=== PATIENT | female | born 2000 | race Caucasian/White ===

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

== ENCOUNTER 2021-01-09 16:15 | Emergency (ER) | payer MEDICAID ==
[2021-01-09] MEDS ORDERED: TETRACAINE 0.5% STERI-UNIT SOL OP ONE (16:54)
[2021-01-09] MEDS ORDERED: Eye-Stream Solution ONE (16:54)
[2021-01-09] MEDS ORDERED: Fluor-I-Strip/Ful-Flo OP ONE (16:55)
[2021-01-09] MEDS ORDERED: Erythromycin 3.5 GM OPHTH. OP ONE ×2 (17:55→18:14)
[2021-01-09] MEDS ORDERED: Erythromycin 1 GM ONE (17:57)
--- NOTE | 2021-01-09 18:06 | ERPHSYRPT ---
- History of Present Illness Time Seen by Provider: 01/09/21 16:30 Source: patient Exam Limitations: no limitations Patient Subjective Stated Complaint: L eye irritation Triage Nursing Assessment: pt to ED c/o L eye irritation and swelling after ru bbing eye approx 30 min ago. states blurred vision in L eye and does not wear corrective lenses. pt states she believes she may have had tanning lotion still on her hand from this am and it has irritated eye while rubbing it. L eye is reddened and eyelids are swollen. denies pain now. some tears noted in L eye as well. Physician History: Patient is a 20-year-old female presents to our ED with complaints of eye irritation to her left eye. Symptoms started this morning after she accidentally had tanning lotion on her hand and rubbed her left eye. She said thereafter the eye became "itchy". Patient has been rubbing her eye all morning. Patient states now she feels a foreign body sensation in her eye. Slight blurred vision. No headache. No trauma. No flashing lights. No curtainlike shadow on patient's eyes. Symptoms are mild to moderate in intensity. No specific worsening or improving factors. Patient voices no other complaints or concerns at this time. Patient does not wear contacts or corrective eyeglasses. Timing/Duration: today Location: left eye Severity: mild Apparent Injury: no Associated Symptoms: itching Visual Assistive Devices: None Chemical Exposure: Yes Allergies/Adverse Reactions: No Known Drug Allergies Allergy (Verified 01/09/21 16:35) Hx Tetanus, Diphtheria Vaccination/Date Given: Yes Hx Influenza Vaccination/Date Given: Yes Hx Pneumococcal Vaccination/Date Given: No Immunizations Up to Date: Yes Travel Risk - International Travel Have you traveled outside of the country in past 3 weeks: No - Coronavirus Screening Are you exhibiting any of the following symptoms?: No Close contact with a COVID-19 positive Pt in past 14-21 Days: No - Past Medical History Pertinent Past Medical History: Yes Neurological History: No Pertinent History ENT History: No Pertinent History Cardiac History: No Pertinent History Respiratory History: Pneumonia Endocrine Medical History: No Pertinent History Musculoskeletal History: No Pertinent History GI Medical History: No Pertinent History History: No Pertinent History Psycho-Social History: No Pertinent History Female Reproductive Disorders: No Pertinent History - Past Surgical History Past Surgical History: Yes Neuro Surgical History: No Pertinent History Cardiac: No Pertinent History Respiratory: No Pertinent History Gastrointestinal: No Pertinent History Genitourinary: No Pertinent History Musculoskeletal: No Pertinent History Female Surgical History: No Pertinent History Other Surgical History: finger surgery as a child - Social History Smoking Status: Never smoker Exposure to second hand smoke: Yes Drug Use: none Patient Lives Alone: No - Female History Hx Last Menstrual Period: 12/17/20 Hx Now: No - Nursing Vital Signs Nursing Vital Signs: Initial Vital Signs Temperature 98.3 F 01/09/21 16:22 Pulse Rate 111 H 01/09/21 16:22 Respiratory Rate 20 01/09/21 16:22 Blood Pressure 141/88 01/09/21 16:22 O2 Sat by Pulse Oximetry 98 01/09/21 16:22 Pain Scale Pain Intensity 0 - Physical Exam Vision Acuity Degree Evaluation Phase: Uncorrected Vision Acuity Right Eye: 20/20 Vision Acuity Left Eye: 20/50 Intraocular Pressure (Tonopen): left Eye Exam: right eye: normal inspection, PERRL, EOMI, left eye: eyelid inflammation, vision changes (Visual acuity in the left was 20/50 originally however repeat was 20/30.), other (Negative Celeste sign. No obvious corneal abrasions. No obvious foreign bodies. Slight swelling of her left upper eyelid, likely due from rubbing her left thigh excessively.) Ears, Nose, Throat Exam: normal ENT inspection, TMs normal, pharynx normal, moist mucous membranes Neck Exam: normal inspection, non-tender, supple, full range of motion Respiratory Exam: normal breath sounds, lungs clear, airway intact Cardiovascular Exam: regular rate/rhythm (Heart rate at bedside was 88.), normal heart sounds, normal peripheral pulses Gastrointestinal Exam: soft Extremity Exam: normal inspection, normal range of motion, pelvis stable Neurologic: alert, oriented x 3, cooperative, manager ship II-XII nml as tested, normal mood/affect Skin Exam: normal color, warm, dry SpO2 Interpretation: normal SpO2: 98 O2 Delivery: Room Air - Course Nursing assessment & vital signs reviewed: Yes Ordered Tests: Medication Summary Discontinued Medications Generic Name Dose Route Start Last Admin Trade Name Freq PRN Reason Stop Dose Admin Erythromycin 3.5 gm 01/09/21 17:55 01/09/21 17:58 Erythromycin 3.5 Gm Ophth. OP 01/09/21 17:56 3.5 gm STAT ONE Administration Erythromycin Confirm 01/09/21 17:57 Erythromycin 1 Gm Administered 01/09/21 17:58 Dose 1 gm .ROUTE .STK-MED ONE Eye Irrigation Solution Confirm 01/09/21 16:54 Eye-Stream Solution Administered 01/09/21 16:55 Dose 30 ml .ROUTE .STK-MED ONE Fluorescein Sodium Confirm 01/09/21 16:55 Aedou-C-Sbtsz/Ful-Johnie Administered 01/09/21 16:56 Dose 1 mg OP .STK-MED ONE Tetracaine HCl Confirm 01/09/21 16:54 Tetracaine 0.5% Steri-Unit Kellie Administered 01/09/21 16:55 Dose 4 ml OP .STK-MED ONE - Progress Progress: improved Progress Note: 01/09/21 18:08 Patient reassessed. Patient denies eye irritation at this time. Symptoms resolved after application of tetracaine. Eye exam did not reveal any foreign body or obvious corneal abrasions. Eye pressure was 15 mmhg bilaterally equal. Repeat visual acuity at discharge was 20/20 on the right and 20/30 on the left. The eye was copiously irrigated. Patient states she is planning to see her eye doctor at [facility]. She will schedule appointment today. Patient understands the importance of follow-up within 48 hours. Patient voiced no other complaints at this time. She is comfortable. Patient states is ready for discharge. Will discharge home with the understanding she will follow-up with her eye doctor within 48 hours. Patient voices no other complaints concerns at this time. 01/09/21 18:13 Counseled pt/family regarding: diagnosis, need for follow-up - Departure Departure Disposition: Home Clinical Impression: Eye irritation Condition: Stable Critical Care Time: No Referrals: MARCY BRANTLEY [Primary Care Provider] - Additional Instructions: Please follow-up with your eye doctor at [facility]. Call today for a follow-up appointment. The number is [phone]. Discharge/Care Plan CIRA CHERRY was seen on 01/09/21 in the Emergency Room. The patient was counseled regarding Diagnosis,Lab results, Imaging studies, need for follow up and when to return to the Emergency Room. Prescriptions given: Discharge Note I have spoken with the patient and/or caregivers. I have explained the patient's condition, diagnosis and treatment plan based on the information available to me at this time. I have answered the patient's and/or caregiver's questions and addressed any concerns. The patient and/or caregivers have as good understanding of the patient's diagnosis, condition and treatment plan as can be expected at this point. The vital signs have been stable. The patient's condition is stable and appropriate for discharge from the emergency department. The patient will pursue further outpatient evaluation with the primary care physician or other designated or consulting physician as outlined in the discharge instructions. The patient and/or caregivers are agreeable to this plan of care and follow-up instructions have been explained in detail. The patient and/or caregivers have received these instruction. The patient/and or caregivers are aware that any significant change in condition or worsening of symptoms should prompt an immediate return to this or the closest emergency department or call 911. Prescriptions: Erythromycin Base 3.5 gm [Erythromycin 3.5 GM OPHTH.] 3.5 gm OP QID #1 tube
[2021-01-09 18:30] VITALS: BP 122/75; PULSE 92; O2SAT 97
== END 2021-01-09 18:30 | disposition home or self-care (01) ==
LOC: ED 16:15
DX: S05.8X2A Other injuries of left eye and orbit, initial encounter (principal)
CPT/HCPCS: 99283; A9270-GY

== ENCOUNTER 2023-04-21 14:36 | Emergency (ER) | payer MEDICAID ==
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
[2023-04-21 15:57] VITALS: PULSE 77
[2023-04-21] MEDS ORDERED: DELTASONE 20 MG PO ONE (16:09)
[2023-04-21] MEDS ORDERED: Pepcid 20 MG PO ONE (16:09)
[2023-04-21] MEDS ORDERED: BENADRYL 25 MG CAPSULE PO ONE (16:09)
[2023-04-21] MEDS ORDERED: DELTASONE 20 MG ONE (16:12)
[2023-04-21] MEDS ORDERED: BENADRYL 25 MG CAPSULE ONE (16:12)
[2023-04-21] MEDS ORDERED: Pepcid 20 MG ONE ×2 (16:12→16:14)
[2023-04-21 16:36] VITALS: BP 95/71; O2SAT 97
== END 2023-04-21 16:42 | disposition home or self-care (01) ==
LOC: ED 14:36
DX: L25.9 Unspecified contact dermatitis, unspecified cause (principal); Z79.52 Long term (current) use of systemic steroids
CPT/HCPCS: 99282; A9270-GY